=== PATIENT | male | born 1995 | race Caucasian/White ===

== ENCOUNTER 2022-03-23 03:03 | Emergency (ER) | payer OTHER ==
[~2022-03-23] VITALS: Ht 172.7 cm; Wt 81.6 kg
[2022-03-23 03:53] VITALS: BP 131/80
[2022-03-23] MEDS ORDERED: IBUPROFEN 400 MG TABLET ONE (04:07)
[2022-03-23] MEDS ORDERED: IBUPROFEN 400 MG TABLET PO ONE (04:30)
== END 2022-03-23 04:05 | disposition home or self-care (01) ==
LOC: ER 03:15
DX: S13.4XXA Sprain of ligaments of cervical spine, initial encounter (principal); Z88.2 Allergy status to sulfonamides; Z88.8 Allergy status to other drugs, medicaments and biological substances; V89.2XXA Person injured in unspecified motor-vehicle accident, traffic, initial encounter; Y93.89 Activity, other specified; Y92.89 Other specified places as the place of occurrence of the external cause; Y99.8 Other external cause status